=== PATIENT | male | born 1965 | race Caucasian/White ===

== ENCOUNTER 2016-09-09 17:24 | Inpatient (IN) | payer MEDICARE ==
[~2016-09-09] VITALS: Ht 172.7 cm; Wt 89.2 kg
[2016-09-09 17:30] VITALS: BP_SYST 1; PULSE 128; RESP 24; O2SAT 96
--- NOTE | 2016-09-09 17:47 | ED.REPORT ---
HPI-Dyspnea / Wheezing Date of Service September 09, 2016 ED Provider: Fernando Lorenz MD Patient is a 50 year old male with a history of Alpha 1 Antitrypsin deficiency disease who presents to the ED due to shortness of breath onset a week ago. Associated symptoms include a productive cough with green sputum, headache, nausea, sore throat and rhinorrhea. He denies fever or vomiting. Patient is currently on 8 liters of oxygen at home and uses a Nebulizer. He was hospitalized a month ago for pneumonia and finished a course of antibiotics after being discharged. Patient states that his symptoms feel similar to when he had pneumonia. The patient reports that he is here from [place] for an evaluation for a lung transplant. Nursing Notes Stated Complaint: PROBLEMS BREATHING, DIZZINESS Chief Complaint: Respiratory Distress Nursing Notes Reviewed: Yes Allergies: Coded Allergies: No Known Allergies (Unverified , 09/09/16) Scheduled Albuterol Neb Soln (Albuterol Neb Soln) 2.5 Mg/3 Ml Vial.neb 2.5 MG INHALATION Q4H Khqlu-8-Gnykvrswcz Inhibitor (Prolastin C) 1,000 Mg/20 Ml Vial 5,500 MG IV WEEKLY TAKES ON THURSDAYS, PT CAN BRING IN. 60 MG/KG Fluticasone/Vilanterol (Breo Ellipta 100-25 Mcg INH) 1 Each Aer.pow.ba 1 EACH IH DAILY Methadone (Methadone) 10 Mg/1 Ml Oral.conc 10 MG PO DAILY Prednisone (PredniSONE) 20 Mg Tablet 20 MG PO QAM Tiotropium [place] (Spiriva) 18 Mcg Cap.w.dev 18 MCG IH QAM Scheduled PRN Albuterol HFA (Proair HFA) 8.5 Gm Hfa.aer.ad 2 PUFFS INHALATION Q4H PRN PRN For Shortness of Breath Albuterol Neb Soln (Albuterol Neb Soln) 2.5 Mg/3 Ml Vial.neb 2.5 MG INHALATION Q2H PRN PRN For Shortness of Breath Alprazolam (Xanax) 1 Mg Tablet 1 MG PO TID PRN PRN For Anxiety Sumatriptan (Imitrex) 25 Mg Tablet 50 MG PO Q2H PRN PRN MIGRAINE TAKE 2 TABLETS AT ONSET OF MIGRAINE, MAY REPEAT IN 2 HRS IF NEEDED General Time Seen by MD: 17:46 Chief Complaint Shortness of breath Hx Obtained From: Patient Arrived By: Walk-in Sudden in Onset?: No Onset Occurred: 1 week ago Symptom Duration: Since onset Associated with: Reports: Cough, Nausea, Sore throat, Denies: Fever, Vomiting Recent Healthcare: Recent doctor visit, Recent hospitalization Similar Sx Previous: Yes Past Medical History Past Medical History Alpha 1 Antitrypsen deficiency disease Smoking History Unknown if Ever Smoker Social History Other Social History: Good social support, From out of town Ambulatory Status Independent Review of Systems Constitutional: Denies: Fever Ears / Nose / Throat: Reports: Sore throat Respiratory: Reports: Prod cough, green, Shortness of breath Allergy / Immune: Reports: Rhinorrhea Complete sys rev & neg: except as marked. GI: Reports: Nausea, Denies: Vomiting Neurologic: Reports: Headache Physical Exam Initial Vital Signs Vital Signs (First) Date Time Temp Pulse Resp B/P Pulse Ox O2 Delivery O2 Flow Rate FiO2 09/09/16 17:30 37.0 128 24 1/ 96 09/09/16 18:14 OxyMask 8 Initial VS: Reviewed General/Constitutional: Awake, Alert Distress / Hydration: Positive: Distress mild Neck: Atraumatic, Full range of motion RESPIRATORY: poor air movement Cardiovascular: Heart sounds NL, No murmurs Heart Rate / Rhythm: Positive: Tachycardia Skin: Atraumatic, Color NL, No rash, Warm, Dry Neurologic: Oriented X3, Speech NL, No motor deficits, No sensory deficits Head / Eyes: Atraumatic, Normocephalic, PERRL, EOMI Psychiatric: Affect NL, Mood NL Interpretation & Diagnostics Lab Results Interpretation Result Diagram: 09/09/16180909/09/16 181 Test 09/09/16 18:10 White Blood Count 9.4th/mm3 (3.8-10.1) Red Blood Count 5.33mil/mm3 (4.40-5.80) Hemoglobin 15.5g/dL (13.8-17.2) Hematocrit 46.1% (41.0-50.0) Mean Corpuscular Volume 86.5fL (81-100) Mean Corpuscular Hemoglobin 29.1pg (27.0-35.0) Mean Corpuscular Hemoglobin Concent 33.6% (32.0-37.0) Red Cell Distribution Width 13.4% (12.3-15.4) Platelet Count 292bil/L (150-400) Neutrophils (%) (Auto) 70.9% (40-74) Lymphocytes (%) (Auto) 12.0% (14-46) Monocytes (%) (Auto) 9.7% (4-12) Eosinophils (%) (Auto) 6.5% (0-5) Basophils (%) (Auto) 0.3% (0-3) Prothrombin Time 10.1sec (8.1-12.5) Prothromb Time International Ratio 0.95ratio D-Dimer < 0.50mg/L FEU (<0.50) Sodium Level 143mEq/L (134-144) Potassium Level 4.6mEq/L (3.5-5.2) Chloride Level 101mEq/L (97-108) Carbon Dioxide Level 25mmol/L (18-29) Blood Urea Nitrogen 18mg/dL (6-24) Creatinine 0.65mg/dL (0.76-1.27) Estimat Glomerular Filtration Rate 139mL/min (>59) Glucose Level 92mg/dL (60-99) Lactic Acid Level 1.3mmol/L (0.4-2.0) Calcium Level 9.6mg/dL (8.5-10.1) Total Bilirubin 0.6mg/dL (0.0-1.2) Aspartate Amino Transf (AST/SGOT) 35U/L (0-50) Alanine Aminotransferase (ALT/SGPT) 52U/L (0-44) Alkaline Phosphatase 57U/L (25-150) Troponin T < 0.010ug/L (0.0-0.011) Pro-B-Type Natriuretic Peptide 21.64pg/mL (0-121) Total Protein 7.7g/dL (6.4-8.4) Albumin 4.3g/dL (3.4-5.0) ECG Interpretation ECG Interpretation: sinus tachycardia, rate [address] changes Interpreted by: ED physician X-Ray Chest Interpretation Chest Xray Interpretation: IMPRESSION: No acute cardiopulmonary disease. Dictated by: Genesis Norwood M.D. on 09/09/2016 at 18:36 Approved by: Genesis Norwood M.D. on 09/09/2016 at 18:37 View: Portable, 1 view Interpretation / Wet Read by: Interpret - Radiologist Re-Eval/Medical Decision Med Decision/Clinical Course 50-year-old male history of alpha-1 antitrypsin deficiency, COPD awaiting lung transplant presenting after moving from [place] one week ago with worsening shortness of breath. He is on 8 L oxygen at home. He reports cough productive of green sputum. On arrival with moderate respiratory distress which improved with DuoNeb and steroids. He is requiring 8 L. Chest x-ray no pneumonia. D-dimer is negative. Patient does not feel comfortable going home. He will be admitted for COPD exacerbation. Given steroids and azithromycin. Source of Hx: Old records Re-Evaluation/Progress : Time of Eval: 20:02 Patient Status: Condition improved Re-Evaluation/Progress Note: Discussed results and plan for admit. The patient understands and agrees to the plan for admit. All questions were addressed. Consultation : Referral / Consult Name: Stephanie Timmons DO Consulted With: Hospitalist Call Returned at: 21:43 Assistant Pressman: Agrees with eval, Agrees with plan, Accepts admit Counseled Regarding: Diagnosis, Lab results, Need for admission Discharge & Departure Impression: Primary Impression: COPD exacerbation Disposition: ADMITTED TO HOSPITAL Discharge Condition All VS Reviewed: Yes Condition: Stable Scribe Attestation Portions of this note were transcribed by Ashly Boston. I, Dr. Bonny Larkin personally performed the history, physical exam and medical decision-making; I reviewed and confirmed the accuracy of the information in the transcribed note. Signed by: Kai Bean, 09/09/16 and 2142 Fernando Lorenz MD September 09, 2016 17:47 Sho Boston September 09, 2016 18:00
[2016-09-09] MEDS ORDERED: Albuterol-Ipratropium 3 mL Inhalation Solution NEB ONE (18:05)
[2016-09-09] MEDS ORDERED: MethylprednisoLONE Sodium Succinate 62.5 mg/mL 2 mL Inj IVPUSH ONE (18:05)
[2016-09-09] MEDS ORDERED: PRE20 PO (18:07)
[2016-09-09] MEDS ORDERED: METH10OR11 PO (18:07)
[2016-09-09] MEDS ORDERED: IMI25 PO (18:07)
[2016-09-09] MEDS ORDERED: TIOT18CA3 IH (18:07)
[2016-09-09] MEDS ORDERED: ALPR1TAB2 PO (18:07)
[2016-09-09] MEDS ORDERED: [UNRECOGNIZED DRUG - CODE] IV (18:07)
[2016-09-09] MEDS ORDERED: ALBU2.5V4 INHALATION ×2 (18:07→22:54)
[2016-09-09] MEDS ORDERED: FLUT1AER IH (18:08)
[2016-09-09 18:14] VITALS: PULSE 120; RESP 20; O2SAT 96
[2016-09-09 18:26] LABS: BASOPHILS % (AUTO) 0.3 % (0-3); EOSINOPHILS % (AUTO) 6.5 % (0-5); MONOCYTES % (AUTO) 9.7 % (4-12); Mean Corpuscular Hemoglobin 29.1 pg (27.0-35.0); Mean Corpuscular Volume 86.5 fL (81-100); NEUTROPHILS % (AUTO) 70.9 % (40-74); Platelet Count 292 bil/L (150-400)
--- NOTE | 2016-09-09 18:38 | DRSVH ---
PROCEDURE: X-RAY CHEST ONE VIEW, PORTABLE ([id number]) INDICATIONS: 50 year-old man with alpha-1antitrypsin deficiency presents with dyspnea. TECHNIQUE: One view of the chest was acquired. COMPARISON: None. FINDINGS: Surgical changes and devices: None. Lungs and pleura: No pleural effusions or pneumothorax. Lungs are clear. Lucencies in upper lungs compatible with emphysema. Mediastinum: Mediastinal contours appear normal. Heart size is normal. Bones and chest wall: No suspicious bony lesions. Overlying soft tissues appear unremarkable. IMPRESSION: No acute cardiopulmonary disease. Dictated by: Genesis Norwood M.D. on 09/09/2016 at 18:36 Approved by: Genesis Norwood M.D. on 09/09/2016 at 18:37
[2016-09-09 18:42] LABS: D-Dimer < 0.50 mg/L FEU (<0.50); INR 0.95 ratio
[2016-09-09 18:56] LABS: TROPONIN T < 0.010 ug/L (0.0-0.011)
[2016-09-09] MEDS ORDERED: Ondansetron 2 mg/mL 2 mL Inj ONE (19:35)
[2016-09-09 20:40] VITALS: BP 143/69; PULSE 112; RESP 23; O2SAT 97
[2016-09-09] MEDS ORDERED: oxyCODONE-Acetamin 10-325 mg Tablet PO ONE (20:40)
[2016-09-09 20:51] VITALS: PULSE 112; RESP 19; O2SAT 97
[2016-09-09] MEDS ORDERED: Alum-Mag Hydrox-Simeth 30 mL Suspension PO PRN (21:45)
[2016-09-09] MEDS ORDERED: Polyethylene Glycol (PEG) 17 Gm Powder PO PRN (21:45)
[2016-09-09 22:34] VITALS: BP 115/70; PULSE 106; RESP 24; O2SAT 95
[2016-09-09] MEDS ORDERED: ALBU8.5H2 INHALATION (22:54)
[2016-09-09 23:31] VITALS: BP 140/101; PULSE 103; RESP 22; O2SAT 96
[2016-09-10] VITALS (14 sets, daily range): BP systolic 115–128; BP diastolic 72–93; PULSE 73–112; RESP 16–24; O2SAT 93–99
[2016-09-10] MEDS ORDERED: Piperacillin-Tazo 3.375 Gm Inj 3.375 GM in Dextrose 5% Minibag Plus 50 ML IV SCH (00:30)
[2016-09-10] MEDS ORDERED: MethylprednisoLONE Sodium Succinate 62.5 mg/mL 2 mL Inj IVPUSH SCH (00:30)
[2016-09-10] MEDS: Albuterol-Ipratropium 3 mL Inhalation Solution NEB SCH ×6 (00:30→21:17)
--- NOTE | 2016-09-10 00:55 | PCM.HPMED ---
Subjective Date of Service September 10, 2016 Primary Provider: Admitting Physician: Stephanie Timmons DO Primary Care Physician: Payam Attending Physician: Stephanie Timmons DO Admit Status: From the Emergency Department Chief Complaint: SOB and Headache History of Present Illness: Khurram Hewitt is a 50 year old man with a PMH of alpha 1 antitrypsin deficiency resulting in end stage COPD who presents with a 1 week history of worsening SOB beyond his baseline and associated headache. Mr. Hweitt traveled up from [place] 1 week ago in the hopes of coordinating a lung transplant through . He states that he was in the process of being worked up for a transplant at the [facility], but they deemed that his post operative support network was insufficient to proceed with the operation; thus his father drove him up here with the idea that he could provide that level of care and could carry out the procedure. He is still in the process of coordinating the paperwork necessary to be seen by their transplant team, he states that he needs to become established with a ticket dispenser changer in [facility] and has attempted to schedule an appointment with Dr. Luna but was told that he would have to wait until March at the earliest to be seen in her office, he is concerned that he will decompensate in that interim and either pass away or no longer be a candidate for transplantation. In regards to his current illness he states that he has not yet returned to his admittedly poor baseline since making the trip from [place], he further states that his chronic migraines have become worse since arrival and are only minimally responsive to his usual Sumatriptan therapy. He had thought that the [place] living [place] 6500 [place] to much closer to sea level here would greatly improve his symptoms but as of yet that has not proven to be the case. He further complains of "lung pain" in his right lung when he attempts to take deep breaths which has been ongoing for years but has acutely worsened since arrival. He denies chest pain, abdominal pain, changes in bowel or bladder habits, nausea, vomiting, fevers or chills. The patient receives weekly infusions of Alpha-1 protease inhibitor which was scheduled to be administered today but he was not able to do so. In the Ed the patient underwent CXR which was unremarkable, laboratory evaluation including D-Dimer which was only remarkable for very minor increase in ALT at 52. Review of Systems: Comprehensive ROS negative except as outlined above in the HPI Allergies Coded Allergies: No Known Allergies (Unverified , 09/09/16) Home Medications Scheduled Albuterol Neb Soln (Albuterol Neb Soln) 2.5 Mg/3 Ml Vial.neb 2.5 MG INHALATION Q4H Vhxmk-3-Ssybdglkce Inhibitor (Prolastin C) 1,000 Mg/20 Ml Vial 5,500 MG IV WEEKLY TAKES ON THURSDAYS, PT CAN BRING IN. 60 MG/KG Fluticasone/Vilanterol (Breo Ellipta 100-25 Mcg INH) 1 Each Aer.pow.ba 1 EACH IH DAILY Methadone (Methadone) 10 Mg/1 Ml Oral.conc 10 MG PO DAILY Prednisone (PredniSONE) 20 Mg Tablet 20 MG PO QAM Tiotropium [place] (Spiriva) 18 Mcg Cap.w.dev 18 MCG IH QAM Scheduled PRN Albuterol HFA (Proair HFA) 8.5 Gm Hfa.aer.ad 2 PUFFS INHALATION Q4H PRN PRN For Shortness of Breath Albuterol Neb Soln (Albuterol Neb Soln) 2.5 Mg/3 Ml Vial.neb 2.5 MG INHALATION Q2H PRN PRN For Shortness of Breath Alprazolam (Xanax) 1 Mg Tablet 1 MG PO TID PRN PRN For Anxiety Sumatriptan (Imitrex) 25 Mg Tablet 50 MG PO Q2H PRN PRN MIGRAINE TAKE 2 TABLETS AT ONSET OF MIGRAINE, MAY REPEAT IN 2 HRS IF NEEDED PMH Alpha 1 Antitrypsen deficiency disease End Stage COPD Migraine Chronic Pain Surgical History None Family History Patient unaware of any relevant family history Social History Hx Alcohol Use: Yes Hx Substance Use: No Hx Tobacco Use: No Smoking Status: Never Smoker Living Arrangement: with Family Exam Vital Signs Vital Sign - Last Date Time Temp Pulse Resp B/P Pulse Ox O2 Delivery O2 Flow Rate FiO2 09/10/16 00:31 92 20 126/93 95 Venturi Mask 8 09/09/16 17:30 37.0 Exam Gen: A/O x3 pleasant cooperative gentleman in mild acute distress secondary to SOB Neck: Supple, non tender, no JVD, Full ROM HEENT: PERRL, EOMI, mucous membranes moist, no scleral icterus, no conjunctival pallor CV: RRR, no murmurs rubs or gallops Pulm: Diffuse expiratory wheezing, poor air movement with pursed lips breathing , no tripoding, no rales or rhonchi GI: soft, non tender, no organomegaly : no schroeder in place Extr: No cyanosis clubbing or edema MSK: no erythema or edema of joints, full ROM Neuro: CN 2-12 grossly intact, no focal neurologic deficit Lymphatic: no cervical or supraclavicular lymphadenopathy on exam Psych: Pleasant and appropriate mood and affect with some underlying anxiety Lab and Diagnostics Labs Item Value Date Time Red Blood Count 5.33 mil/mm3 09/09/161809 Neutrophils (%) (Auto) 70.9 % 09/09/161809 Lymphocytes (%) (Auto) 12.0 % L 09/09/161809 Monocytes (%) (Auto) 9.7 % 09/09/161809 Eosinophils (%) (Auto) 6.5 % H 09/09/161809 Basophils (%) (Auto) 0.3 % 09/09/161809 Estimat Glomerular Filtration Rate 139 mL/min 09/09/161809 Lactic Acid Level 1.3 mmol/L 09/09/16 1810 Calcium Level 9.6 mg/dL 09/09/160 Total Bilirubin 0.6 mg/dL 09/09/161809 Aspartate Amino Transf (AST/SGOT) 35 U/L 09/09/16 1810 Alanine Aminotransferase (ALT/SGPT) 52 U/L H 09/09/16 181 Alkaline Phosphatase 57 U/L 09/09/160 Troponin T < 0.010 ug/L 09/09/161809 Pro-B-Type Natriuretic Peptide 21.64 pg/mL 09/09/161809 Total Protein 7.7 g/dL 09/09/16 1810 Albumin 4.3 g/dL 09/09/161809 Prothrombin Time 10.1 sec 09/09/16 181 Prothromb Time International Ratio 0.95 ratio 09/09/16 181 D-Dimer < 0.50 mg/L FEU 09/09/161809 Result Diagram: 09/09/16 18109/09/161809 Microbiology Blood culture pending Legionella and S.pneumo urine antigen pending Respiratory PCR pending X-Rays, CTs and MRIs X-RAY CHEST ONE VIEW, PORTABLE IMPRESSION: No acute cardiopulmonary disease. Dictated by: Genesis Norwood M.D. on 09/09/2016 at 18:36 Approved by: Genesis Norwood M.D. on 09/09/2016 at 18:37 . Assessment & Plan Khurram Hewitt is a 50 year old gentleman with a past medical history of Alpha 1 antitrypsin deficiency resulting in end stage COPD without reported liver involvement presenting with a 1 week history of worsening SOB [place] through . 1. Acute hypoxemic hypercapnic respiratory failure, POA, acute on chronic. Active -Secondary to Alpha 1 anti-trypsin induced end stage COPD -DuoNeb q4 Scheduled -Solu-Medrol 125 mg IV Q8 -Supplemental O2 for O2 sat >88 -Broad spectrum prophylactic Abx given severity of underlying condition -Vanco, Zosyn, Levaquin -Procalcitonin pending -Tele monitoring -Pulmonology consult tomorrow AM to coordinate care and perhaps expedite establishing care with local Hand Alterations Seamstress 2. COPD exacerbation, POA, acute on chronic. Active -Respiratory medication as above -prophylactic Abx as above -Supplemental O2 as above -Pulmonology consult as above 3. Alpha 1 anti-trypsin deficiency, POA, chronic. Active -Patient receives weekly infusion of Alpha 1 protease inhibitor which was scheduled to be delivered today -Will administer tomorrow AM -Consider transfer to [facility] tomorrow AM for coordination of care and beginning pre- operative process for possible transplant -Per [facility] patient needs to establish care with both a Hand Alterations Seamstress and a Primary care doctor prior to transplant -Patient was given information to establish care at the residency clinic -Patient has attempted to establish care with Dr. Luna, but is concerned that the wait to be seen is too long given the severity of his condition 4. Migraine, POA, acute on chronic. Active -Continue home Sumatriptan 50mg PO Q2 PRN -Control triggers such as bright light, poor sleep, loud noise when possible 5. Chronic Pain, POA, acute on chronic. Active -Continue home Methadone 10 mg PO daily Code Status: FULL CODE Disposition: Inpatient, anticipated length of stay >2 midnights due to severity of condition and complexity of treatment plan Pain Evaluation: Adequate Pain Control GI Prophylaxis: H2 rojelio VTE Prophylaxis: Sub-Q Heparin (Unfractionated) VTE Mechanical Devices: Intermittant Pneumatic CD Resuscitation Status: CPR: Attempt Resuscitation Attending Statement The patient was seen and examined together with house staff on 09/09/2016 and I agree with the history, exam and plan as outlined in the note above. copies to: Tara Luna MD, David E DO September 10, 2016 00:55 Stephanie Timmons DO September 10, 2016 05:41
[2016-09-10] MEDS ORDERED: levoFLOXacin Inj 750 MG in IV Premix 1 EACH IV SCH ×2 (01:06→06:00)
--- NOTE | 2016-09-10 01:22 | ABG ---
DateTimeAnalyzed 01:18:00 -_ pH ____7.376 - 7.350 7.450 pCO2 ___50.7__ -mmHg 35.0 45.0 pO2 128 -mmHg 69.0 116 HCO3- ___29.0__ -mmol/L 22.0 26.0 ABE ____3.2__ -mmol/L -2.0 2.0 tHb ___14.7__ -g/dL O2Hb ___97.0__ -% COHb ____0.7__ -% MetHb ____1.0__ -% sO2 ___98.7__ -% 25.0 FIO2 ___60.0__ -% Drawn By AF - Date/Time Notified____ 01:21:00 -_ Notified By AF - Notified Whom ___Dr. Coelho - B 754 -mmHg tO2 ___20.2__ -Vol% Wilfredo test _Positive -
[2016-09-10] MEDS ORDERED: Vancomycin Inj 1,500 MG in 0.9% Sodium Chloride 500 ML IV ONE (01:45)
[2016-09-10] MEDS: Heparin 5,000 Unit/mL Inj SUBQ SCH ×3 (02:15→16:30)
--- NOTE | 2016-09-10 02:57 | PCM.CONPHA ---
Subjective Date of Service: September 10, 2016 SOB and Headache Reason for Pharmacy Consult: Vancomycin Dosing Objective Vital Signs Date Time Temp Pulse Resp B/P Pulse Ox O2 Delivery O2 Flow Rate FiO2 09/10/16 00:56 36.6 90 22 116/79 94 OxyMask 8.00 09/10/16 00:31 92 20 126/93 95 Venturi Mask 8 09/09/16 23:31 103 22 140/101 96 Venturi Mask 8 09/09/16 22:34 106 24 115/70 95 Venturi Mask 8 09/09/16 20:51 112 19 97 OxyMask 7 09/09/16 20:40 112 23 143/69 97 Venturi Mask 8 09/09/16 18:14 120 20 96 OxyMask 8 09/09/16 17:30 37.0 128 24 1/ 96 Weight (Kilograms): 89.200 Height (Feet): 5 Height (Inches): 8.00 Test 09/09/16 18:10 09/09/16 18:52 White Blood Count 9.4th/mm3 (3.8-10.1) Red Blood Count 5.33mil/mm3 (4.40-5.80) Hemoglobin 15.5g/dL (13.8-17.2) Hematocrit 46.1% (41.0-50.0) Mean Corpuscular Volume 86.5fL (81-100) Mean Corpuscular Hemoglobin 29.1pg (27.0-35.0) Mean Corpuscular Hemoglobin Concent 33.6% (32.0-37.0) Red Cell Distribution Width 13.4% (12.3-15.4) Platelet Count 292bil/L (150-400) Neutrophils (%) (Auto) 70.9% (40-74) Lymphocytes (%) (Auto) 12.0% (14-46) Monocytes (%) (Auto) 9.7% (4-12) Eosinophils (%) (Auto) 6.5% (0-5) Basophils (%) (Auto) 0.3% (0-3) Prothrombin Time 10.1sec (8.1-12.5) Prothromb Time International Ratio 0.95ratio D-Dimer < 0.50mg/L FEU (<0.50) Sodium Level 143mEq/L (134-144) Potassium Level 4.6mEq/L (3.5-5.2) Chloride Level 101mEq/L (97-108) Carbon Dioxide Level 25mmol/L (18-29) Blood Urea Nitrogen 18mg/dL (6-24) Creatinine 0.65mg/dL (0.76-1.27) Estimat Glomerular Filtration Rate 139mL/min (>59) Glucose Level 92mg/dL (60-99) Lactic Acid Level 1.3mmol/L (0.4-2.0) Calcium Level 9.6mg/dL (8.5-10.1) Total Bilirubin 0.6mg/dL (0.0-1.2) Aspartate Amino Transf (AST/SGOT) 35U/L (0-50) Alanine Aminotransferase (ALT/SGPT) 52U/L (0-44) Alkaline Phosphatase 57U/L (25-150) Troponin T < 0.010ug/L (0.0-0.011) Pro-B-Type Natriuretic Peptide 21.64pg/mL (0-121) Total Protein 7.7g/dL (6.4-8.4) Albumin 4.3g/dL (3.4-5.0) Procalcitonin 0.04ng/mL (0.00-0.08) Assessment/Plan Assessment/Plan Vancomycin dosing per pharmacy Indication: respiratory failure in a lung transplant candidate Trough goal: 15-20 Pertinent info: - Receiving broad spectrum antibiotics due to high risk patient. - WBC 9.4 - SCr: 0.65 - Procalcitonin is neg. - Patient receiving loading dose of vancomycin 1500 mg one time at 0214. Maintenance dose: vancomycin 1250 mg Q8H to start at 0900. Trough has been scheduled prior to the 4th dose at 09/10 @0030. Pharmacy to continue to monitor and dose vancomycin. Thank you, Adriana Garcia Pharmacist Adriana Garcia September 10, 2016 02:57
[2016-09-10] MEDS ORDERED: HYDROmorphone 1 mg/mL Inj IVPUSH ONE (03:45)
[2016-09-10 06:05] LABS: BASOPHILS % (AUTO) 0.1 % (0-3); EOSINOPHILS % (AUTO) 0 % (0-5); MONOCYTES % (AUTO) 0.6 % (4-12); Mean Corpuscular Hemoglobin 29.1 pg (27.0-35.0); Mean Corpuscular Volume 86.5 fL (81-100); NEUTROPHILS % (AUTO) 94.8 % (40-74); Platelet Count 314 bil/L (150-400)
--- NOTE | 2016-09-10 06:07 | NUR ---
Admit pt arrived to floor around 0050, A&O but very SOB, reports severe LESTER at 7/10, Imitrex given but LESTER worsened to 10/10. MD called and order for IV Benadryl and IV Dilaudid obtained and given. LESTER improved significantly. Med rec done from pt recall.
[2016-09-10 06:24] LABS: Magnesium 2.1 mg/dL (1.6-2.6); Phosphorus 2.9 mg/dL (2.5-4.9)
[2016-09-10 08:26] LABS: APPEARANCE,URINE CLEAR (CLEAR,HAZY); COLOR,URINE YELLOW (YELLOW); OCCULT BLOOD,URINE NEGATIVE (NEGATIVE); UROBILINOGEN,URINE NORMAL (NORMAL)
[2016-09-10] MEDS ORDERED: FLUTICASONE IH SCH (08:30)
[2016-09-10] MEDS ORDERED: PROLASTIN C IV SCH (08:30)
[2016-09-10] MEDS ORDERED: Vancomycin Dose per Pharmacist XX SCH (08:30)
[2016-09-10] MEDS ORDERED: VILANTEROL IH SCH (08:30)
[2016-09-10] MEDS ORDERED: Vancomycin Inj 1,250 MG in 0.9% Sodium Chloride 250 ML IV SCH (09:00)
[2016-09-10] MEDS: Methadone 10 mg/mL Oral Concentrate PO SCH (09:14)
[2016-09-10] MEDS: Fluticasone-Salmererol 250-50 Inhaler INHALATION SCH ×2 (09:18→20:55)
--- NOTE | 2016-09-10 10:24 | NUR ---
Social Work: Screening Data: Pt is a 50 y/o male admitted for COPD exacerbation. Pt's PCP is not listed. Pt discussed in rounds. states pulmonology is following, possible need for lung transplant. INSTRUCTIONAL DEVELOPER will continue to follow for possible d/c needs. Assessment: Pt who is independent at baseline. Plan: Pulmonology is following, possible need for lung transplant. INSTRUCTIONAL DEVELOPER will continue to follow for possible d/c needs. CARRIE Jones
[2016-09-10] MEDS: predniSONE 20 mg Tablet PO SCH (11:31)
[2016-09-10] MEDS: Butalbital-Acet-Caffeine Tablet PO PRN ×2 (11:33→20:56)
[2016-09-10] MEDS: guaiFENesin 600 mg ER12 Tablet PO SCH ×2 (13:23→20:56)
--- NOTE | 2016-09-10 16:50 | NUR ---
spiritual care: pt request lengthy conversational visit. pt shared detailed account of his diagnosis, disease process and more recently journey to [place] hopefully for lung transplant. pt draws hope/strength from variety of sources: sense of purposefulness, devotion to 15 yr old dtr, sense of being nurtured through this process. pt welcomed spiritual care; s.c. to follow.
--- NOTE | 2016-09-10 18:04 | NUR ---
OXYGEN Attempted to wean oxygen need for patient. Patient instructed by respiratory therapy on over-oxygenation per ABG results. Pt very anxious throughout shift. Was able to wean to 4L humidified O2 via NC, then pt independantly turned level up to nearly 9L when staff was not in the room. Reinforced deep breathing in through nose out through mouth, O2 titrated back down to 6L, pt tolerating well. Instructed pt to not adjust O2 himself, needs to call staff to assist him. Bed down, call light within reach. Will continue to monitor.
--- NOTE | 2016-09-10 18:45 | NUR ---
oxygenation Attempted to titrate O2 needs down. decreased from 4L oxymask to 2L patient maintained Spo2 of 93-96% for almost 2 hours and then began to desat into the mid 80s moved O2 back to 4L and pt saturated at 93-95% Addendum: 09/10/16 at 1931 by BARBARA VU RN RT educated pt on the risks of over oxygenation.
--- NOTE | 2016-09-10 19:30 | PCM.PNMED ---
Subjective Date of Service September 10, 2016 Subjective Patient was seen and examined at bedside today. Patient denies any chest pain, nausea, vomiting, diarrhea. Patient complains of headache and shortness of breath Overnight events: None Exam Vital Signs Vital Sign - Last Date Time Temp Pulse Resp B/P Pulse Ox O2 Delivery O2 Flow Rate FiO2 09/10/16 16:10 Supplement Oxygen 09/10/16 16:08 112 24 98 7.00 09/10/16 14:21 36.3 122/84 Intake and Output 09/09/16 09/09/16 09/10/16 Cumulative From/Thru 15:00 23:00 07:00 09/09/16 17:30 - 09/10/16 06:45 Intake Total 776 ml 776 ml Output Total 425 ml 425 ml Balance 351 ml 351 ml Intake Oral 236 ml 236 ml IV Total 540 ml 540 ml Output Urine Total 425 ml 425 ml # Voids 0 0 Exam Physical Exam: GEN: Patient was awake, alert, responding appropriately to questions HEENT: Pupils equal round and reactive to light, extraocular eye muscles intact , Neck soft supple, trachea midline, nomocephalic/atraumatic CV: +S1/S2, regular rate and rhythm, no murmurs auscultated Respiratory: Decreased breath sounds bilaterally GI: +bowel sounds x4, soft, compressible, nontender to palpation EXT: no clubbing, cyanosis, edema Neuro: Cranial nerves II-XII grossly intact Psych: mood and affect were appropriate IVs and Medications Medications Reviewed: Medications were reviewed in detail Lab and Diagnostics Result Diagram: 09/10/16 0505 09/10/16 0505 Microbiology Blood culture pending Legionella and S.pneumo urine antigen pending Respiratory PCR pending X-Rays, CTs and MRIs X-RAY CHEST ONE VIEW, PORTABLE IMPRESSION: No acute cardiopulmonary disease. Dictated by: Genesis Norwood M.D. on 09/09/2016 at 18:36 Approved by: Genesis Norwood M.D. on 09/09/2016 at 18:37 . Assessment & Plan Khurram Hewitt is a 50 year old gentleman with a past medical history of Alpha 1 antitrypsin deficiency resulting in end stage COPD without reported liver involvement presenting with a 1 week history of worsening SOB [place] lung [place] through [facility]. Acute hypoxemic hypercapnic respiratory failure, POA, acute on chronic. Active -Secondary to Alpha 1 anti-trypsin induced end stage COPD -DuoNeb q4 Scheduled -Solu-Medrol decreased to 40 mg by mouth daily -Supplemental O2 for O2 sat >88 -Discontinue vancomycin, Zosyn, and Levaquin -Start azithromycin 500 mg by mouth daily -Procalcitonin pending -Tele monitoring -Pulmonology consult tomorrow AM to coordinate care and perhaps expedite establishing care with local It Help Desk Manager COPD exacerbation, POA, acute on chronic. Active -Respiratory medication as above -prophylactic Abx as above -Supplemental O2 as above -Pulmonology consult as above Alpha 1 anti-trypsin deficiency, POA, chronic. Active -Patient receives weekly infusion of Alpha 1 protease inhibitor which was scheduled to be delivered today -Will administer tomorrow AM -Consider transfer to [facility] tomorrow AM for coordination of care and beginning pre- operative process for possible transplant -Per [facility] patient needs to establish care with both a It Help Desk Manager and a Primary care doctor prior to transplant -Patient was given information to establish care at the residency clinic -Patient has attempted to establish care with Dr. Luna, but is concerned that the wait to be seen is too long given the severity of his condition -Consult Dr. Alcazar (pulmonology) Migraine, POA, acute on chronic. Active -Continue home Sumatriptan 50mg PO Q2 PRN -Alternate medication Fioricet and Toradol -Control triggers such as bright light, poor sleep, loud noise when possible Chronic Pain, POA, acute on chronic. Active -Continue home Methadone 10 mg PO daily Code Status: FULL CODE Disposition: Patient is currently being established with PCPs and pulmonology. The patient has been diagnosed with flu will continue to monitor. The patient has had to have a lot of education about his oxygen as he is over oxygenating himself. The patient recently moved from [place] and so his oxygen requirements will be less since he is at a lower altitude. Nursing has gone in with the patient multiple times and explained this however the patient when he realizes that his oxygen has been turned down he will then turn his oxygen backup. Education will continue to be had with the patient by both physicians and respiratory therapy. GI Prophylaxis: H2 rojelio VTE Prophylaxis: Sub-Q Heparin (Unfractionated) VTE Mechanical Devices: Intermittant Pneumatic CD Resuscitation Status: CPR: Attempt Resuscitation Jasmyne Melton DO September 10, 2016 19:30
--- NOTE | 2016-09-10 19:32 | NUR ---
pain patient c/o 8/10 headache throughout shift. Administered imitrex, fioricet, toradol at different times. Pt stated that none of the medications worked and the he wanted either morphine, Percocet, or Dilaudid. Hospital notified.
[2016-09-10] MEDS ORDERED: HYDROmorphone 0.5 mg/0.5 mL iSecure Syringe IVPUSH ONE ×2 (20:35→23:10)
[2016-09-10] MEDS: Azithromycin Inj 500 MG in Dextrose 5% w/Vial Mate 250 ML IV SCH (22:05)
[2016-09-11] VITALS (11 sets, daily range): BP systolic 120–125; BP diastolic 78–89; PULSE 88–107; RESP 18–26; O2SAT 96–99
[2016-09-11] MEDS ORDERED: Vancomycin Serum Trough XX ONE (00:30)
[2016-09-11] MEDS: Heparin 5,000 Unit/mL Inj SUBQ SCH ×3 (00:30→16:30)
[2016-09-11] MEDS: Albuterol-Ipratropium 3 mL Inhalation Solution NEB SCH ×6 (00:30→19:49)
[2016-09-11] MEDS: Butalbital-Acet-Caffeine Tablet PO PRN (02:29)
[2016-09-11] MEDS ORDERED: HYDROmorphone 0.5 mg/0.5 mL iSecure Syringe IVPUSH ONE (03:25)
--- NOTE | 2016-09-11 07:21 | NUR ---
Changing his own oxygen. At beginning of shit Pt was on 4L via NC, and has been holding a SpO2 between 98% and 100%. Pt was later assessed and found to be on 6L. Pt asked how this came to be and Pt admitted he got up and increased it him self. Pt was educated to risk of oxygen toxicity and Pt agreed let this RN turn it back down to 4L. Pt holding SpO2 at 98% on 4L.
[2016-09-11] MEDS: Fluticasone-Salmererol 250-50 Inhaler INHALATION SCH ×2 (08:25→21:40)
[2016-09-11] MEDS: predniSONE 20 mg Tablet PO SCH (08:26)
[2016-09-11] MEDS: guaiFENesin 600 mg ER12 Tablet PO SCH ×2 (08:27→21:41)
[2016-09-11] MEDS: Methadone 10 mg/mL Oral Concentrate PO SCH (08:29)
[2016-09-11] MEDS: Ondansetron 2 mg/mL 2 mL Inj IVPUSH PRN ×2 (08:44→23:37)
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
--- NOTE | 2016-09-11 16:16 | NUR ---
spiritual care: follow up visit attempt pt with staff both times i attempted follow up. left note and will follow as needed wednesday
--- NOTE | 2016-09-11 19:00 | CONS ---
[address] [address] CONSULTATION REPORT PATIENT: JUSTICE DURAN : 1965 MR#: [id number] ADMIT: 09/09/2016 JOB ID: [id number] DATE OF SERVICE: 09/11/2016 REQUESTING CLINICIAN: Teaching Service. HISTORY OF PRESENT ILLNESS: The patient is an unfortunate, 50-year-old gentleman was severely advanced COPD and homozygous alpha-1 antitrypsin deficiency with ZZ genotype, who recently relocated from [place], hoping to obtain a lung transplant evaluation through the [facility] after being declined for such through [facility]. He was 1st recognized as having severe lung disease in his mid 30s, but years later was ultimately found to be homozygous Z-allele alpha-1 antitrypsin deficiency. He was started on alpha-1 antitrypsin replacement and ultimately required initiation of home oxygen. He has been disabled now for several years and has a history of regular exacerbations of his advanced COPD which require hospitalizaiont. He sought a lung transplant evaluation through the [facility] which declined to list him through their program given his perceived lack of social support system in the area. He has been moved to [facility] by his family in hopes of having a better support system and thus being eligible for lung transplantation. He has been told by that he must establish with a local PCP and pulmonologis before beginning his pretransplant evaluation. He has no history of liver disease. He denies a history of jaundice, hepatitis, gallstones or pancreatic disease. At baseline, he is able to walk 3-4 blocks on level ground. His exacerbation frequency is approximately 4-5 episodes a year leading to hospitalization. He has used oxygen at flow rates of up to 8 L/min. while he was living at nearly 6,000 feet altitude but I reviewed new recommendations with him.He is not aware of his normal lung elder, specifically whether he has a history of recent Pseudomonas, Xanthomonas, or Burkholderia infection. He was seen in our emergency department two days ago with a 3-day history of increasing sputum production, cough, and dyspnea. He denied hemoptysis. He was also complaining of some vague right-sided chest discomfort, worse with deep breath and cough. He was admitted to [facility] and started on inhaled bronchodilator, systemic corticosteroids, and azithromycin with oseltamivir. Expectorated sputum for PCR was positive for parainfluenza virus. Bacterial cultures do not appear to have been submitted. PAST MEDICAL HISTORY: 1. Alpha-1 antitrypsin deficiency, ZZ genotype per patient. 2. Severely advanced COPD. Currently, no pulmonary function testing available for review. 3. History of migraine headaches. 4. Obstructive sleep apnea based on overnight sleep study two years ago. 5. Chronic pain. OUTPATIENT MEDICATIONS: Include: 1. Prednisone 10 mg daily. 2. Methadone 10 mg daily. 3. Spiriva 18 mcg via HandiHaler daily. 4. Prolastin infusion weekly. 5. Albuterol by MDI and nebulizer p.r.n. 6. Fluticasone/vilanterol metered dose inhaler one puff daily. DRUG ALLERGIES: None known. SOCIAL HISTORY: He is disabled and . He is a former smoker. 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 Was exposed to a lot of abrasive dust where he worked; the materials he handled included cast iron, stainless steel, bronze and brass. FAMILY HISTORY: His brother reportedly also is homozygous alpha-1 anti-trypsin ZZ but reportedly has normal lung function. REVIEW OF SYSTEMS: He has early a.m. headaches for the last six months that slowly subsides 1-2 hours after awakening. He has approximate 10-pound weight loss over the last six months which is voluntary in an attempt to better qualify for lung transplantation. He denies a history of kidney disease, liver disease, heart disease. REVIEW OF SYSTEMS: Ten-system review is complete and positive as noted. PHYSICAL EXAMINATION: This is a well-developed, well-nourished gentleman who appears slightly disheveled. His blood pressure is 120/78, his heart rate is 100 and regular, respirations are 20. Temperature is 36.5 and his O2 saturation at rest on 6 L by cannula is 97%. HEENT EXAM: Conjunctivae are pale, noninjected. Sclerae anicteric. Pupils equal, round, and gaze appears conjugate. Oropharynx shows dry mucosa without ulcerations or exudate. Trachea is midline. There is no mass, adenopathy, or crepitus in the neck, and the chest shows increased AP dimension and is clear to percussion with low diaphragm. On auscultation, he has very decreased breath sounds diffusely and rare scattered crackles but no wheezing is heard. Cardiac exam shows a distant regular rhythm without murmur, gallop, or rub. Extremities are free of clubbing and cyanosis. Lower extremities without edema. Abdomen is soft and nontender. There is no organomegaly. Bowel tones are present. DATABASE: Is per the electronic medical record. Chest x-ray dated September 09, 2016, showed no acute disease. Undoubtedly, there is an extensive database in [place] with imaging, pulmonary function tests, and more recent microbiologic data. These will be useful to whichever community internal corrosion specialist assumes his care and also the [facility] as they evaluate him as a candidate for lung transplantation. IMPRESSION: 1. Acute exacerbation chronic obstructive pulmonary disease. He is on azithromycin as a single agent and parainfluenza alone may explain his symptoms. However, I definitely would obtain an expectorated sputum for bacterial culture, as given the chronicity and advanced nature of his disease, he is at risk for resistant organisms including Pseudomonas, Xanthomonas, and Burkholderia. 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 I suspect that he has some diurnal hypercarbia from lack of treatment for his sleep apnea against background severe chronic obstructive pulmonary disease. An early a.m. blood gas might help to confirm this impression. In the meantime, he should be encouraged to use his CPAP as previously prescribed. His use of chronic narcotics and anxiolytics may further contribute to sleep-disordered breathing and should be stopped or at least minimized. Discontinuing these medications may increase his chance for being successfully accepted as a candidate for lung transplant as well. Unfortunately, there is an extraordinarily long wait for new patients to be accepted into the local pulmonary outpatient clinic. There are any number of other options within an hour or so drive however, including [place], and if our system is unable to accommodate him within the next month or so, he might be referred to the [facility] up in [place] as an alternative. RECOMMEND: 1. Expectorated sputum for culture. Steroids, antibiotics and inhaled bronchodilators as you are. 2. Obtain prior outpatient records from previous internal corrosion specialist, Dr. Plasencia, in [place], [place]. 3. Continue weekly Prolastin infusion. 4. Establish with local community internal corrosion specialist or refer outside community if wait for this is excessive. 5. Refer to [facility] for initial evaluation once outside records have been obtained and he is established with a community internal corrosion specialist. 6. Early AM ABG Thank you for requesting pulmonary critical care consultation. We will continue to follow with you while he remains hospitalized. ALPESH
[2016-09-11] MEDS: Azithromycin Inj 500 MG in Dextrose 5% w/Vial Mate 250 ML IV SCH (21:45)
[2016-09-12] VITALS (13 sets, daily range): BP systolic 115–138; BP diastolic 75–91; PULSE 81–114; RESP 20–24; O2SAT 95–99
[2016-09-12] MEDS: Albuterol-Ipratropium 3 mL Inhalation Solution NEB SCH ×7 (00:05→21:04)
[2016-09-12] MEDS: Heparin 5,000 Unit/mL Inj SUBQ SCH ×3 (02:07→16:00)
--- NOTE | 2016-09-12 02:12 | NUR ---
Pain / Anxiety Management / O2 Sats Toradol works for a few hours but makes him feel anxious. Taking Xanax helps with anxiety but makes him have a headache. Imitrex doesn't help with headache as its not a migraine, he remembers having migraines and this is not the same pain. Wanted Dilaudid / Morphine / Ativan, notified MD. No new orders at this time. @ around 23:00 appears to be sleeping and after vitals @01:34 went directly back to similar apparent sleeping state. O2 sats consistently near 95-96% on 4-5L NC.
[2016-09-12] MEDS: Butalbital-Acet-Caffeine Tablet PO PRN ×2 (05:51→16:03)
[2016-09-12] MEDS: guaiFENesin 600 mg ER12 Tablet PO SCH ×2 (08:30→22:06)
[2016-09-12] MEDS: Fluticasone-Salmererol 250-50 Inhaler INHALATION SCH ×2 (08:39→22:06)
[2016-09-12] MEDS: predniSONE 20 mg Tablet PO SCH (08:39)
[2016-09-12] MEDS: Methadone 10 mg/mL Oral Concentrate PO SCH (08:41)
--- NOTE | 2016-09-12 10:20 | ABG ---
DateTimeAnalyzed 10:14:00 -_ pH ____7.400 - 7.350 7.450 pCO2 ___50.7__ -mmHg 35.0 45.0 pO2 ___36.9__ -mmHg 69.0 116 HCO3- ___30.7__ -mmol/L 22.0 26.0 ABE ____5.3__ -mmol/L -2.0 2.0 tHb ___12.5__ -g/dL O2Hb ___71.3__ -% COHb ____0.8__ -% MetHb ____1.1__ -% sO2 ___72.7__ -% 25.0 FIO2 ___21.0__ -% Drawn By lw - Date/Time Notified____ 10:19:00 -_ Liter_Flow ____4.0__ -L/min Oxygen Device 1 NC - Notified By lw - Notified Whom ___dr. beltran - B 756 -mmHg tO2 ___12.5__ -Vol% Wilfredo test _Positive -
--- NOTE | 2016-09-12 10:27 | NUR ---
Social Work: Continued d/c planning Data: Pt previously was seen at a Methadone clinic in [place] and needs to get connected with a clinic in [facility]. [employer] called Submittable, no answer, voice mail states that those interested can call back during business hours. [employer] printed information for pt to contact [facility] is [place], [place] and how to get connected through them. Phone number [phone], address [address] [place] [address]. Pt will call to set up methadone with [facility] on Wednesday. No further d/c planning needs at this time. [employer] will continue to follow if needs arise. Assessment: Pt who is independent at baseline. Plan: Pt will d/c home via POV when medically stable and will call [facility] on Wednesday to be set up with methadone there. No further d/c planning needs at this time. [employer] will continue to follow if needs arise. CARRIE Jones Addendum: 09/12/16 at 1049 by ROOSEVELT POWERS SS [employer] spoke with pt when giving him the information to call clinic. Pt states that he does not want to go to a Methadone clinic and that he plans to get his Methadone through a Doctor as he did in [place]. Pt explained again that he is not taking this for CD issues, but for pain and that it works the best with his pulmonary issues. Pt accepted the information about the clinic and states that he can use it as a back up plan if needed. CARRIE Jones
--- NOTE | 2016-09-12 14:35 | PCM.PNMED ---
Subjective Date of Service September 12, 2016 Subjective Patient was seen and examined at bedside today. Patient denies any chest pain, shortness of breath, nausea, vomiting, diarrhea. Patient currently complains of a headache. Overnight events: None Exam Vital Signs Vital Sign - Last Date Time Temp Pulse Resp B/P Pulse Ox O2 Delivery O2 Flow Rate FiO2 09/12/16 13:39 37.3 87 24 134/91 98 Nasal Cannula 6.00 Intake and Output 09/11/16 09/11/16 09/12/16 Cumulative From/Thru 15:00 23:00 07:00 09/09/16 17:30 - 09/12/16 06:38 Intake Total 450 ml 637 ml 5595 ml Output Total 500 ml 500 ml 3440 ml Balance -50 ml 137 ml 2155 ml Intake Oral 450 ml 637 ml 3023 ml IV Total 1474 ml Tube Feeding 947 ml Tube Irrigant 151 ml Output Urine Total 500 ml 500 ml 3440 ml # Voids 0 # Bowel Movements 0 0 0 Exam Physical Exam: GEN: Patient was awake, alert, responding appropriately to questions HEENT: Pupils equal round and reactive to light, extraocular eye muscles intact , Neck soft supple, trachea midline, nomocephalic/atraumatic, nasal cannula in place CV: +S1/S2, regular rate and rhythm, no murmurs auscultated Respiratory: Coarse breath sounds, no wheezes rales or rhonchi GI: +bowel sounds x4, soft, compressible, nontender to palpation EXT: no clubbing, cyanosis, edema Neuro: Cranial nerves II-XII grossly intact Psych: mood and affect were appropriate IVs and Medications Medications Reviewed: Medications were reviewed in detail Lab and Diagnostics Result Diagram: 09/10/16 0505 09/10/16 0505 Microbiology Blood culture pending Legionella and S.pneumo urine antigen pending Respiratory PCR pending X-Rays, CTs and MRIs X-RAY CHEST ONE VIEW, PORTABLE IMPRESSION: No acute cardiopulmonary disease. Dictated by: Genesis Norwood M.D. on 09/09/2016 at 18:36 Approved by: Genesis Norwood M.D. on 09/09/2016 at 18:37 . 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 Acute hypoxemic hypercapnic respiratory failure, POA, acute on chronic. Active -Secondary to Alpha 1 anti-trypsin induced end stage COPD -DuoNeb q4 Scheduled -Solu-Medrol decreased to 40 mg by mouth daily -Discontinue vancomycin, Zosyn, and Levaquin -Start azithromycin 500 mg by mouth daily -Procalcitonin pending -Tele monitoring -Flu positive -Dr. Alcazar following -ABG this morning shows patient with a PO2 of 37; patient has been instructed not to adjust his oxygen at this time and that only respiratory therapy should adjust the patient's oxygen -Follow up ABG in the morning COPD exacerbation, POA, acute on chronic. Active -Respiratory medication as above -Azithromycin 500 mg by mouth daily -Supplemental O2 as above -Pulmonology following Alpha 1 anti-trypsin deficiency, POA, chronic. Active -Weekly infusion of Alpha 1 protease inhibitor given yesterday -Per [facility] patient needs to establish care with both a Clinical Dental Technician and a Primary care doctor prior to transplant -Patient has appointment with Dr. Oropeza at 4:15pm on 09/16/16 -Patient has attempted to establish care with Dr. Luna, but is concerned that the wait to be seen is too long given the severity of his condition Will try to establish an appointment at this time. -Dr. Alcazar (pulmonology) Migraine, POA, acute on chronic. Active -Continue home Sumatriptan 50mg PO Q2 PRN -Alternate medication Fioricet and Toradol -Control triggers such as bright light, poor sleep, loud noise when possible Chronic Pain, POA, acute on chronic. Active -Continue home Methadone 10 mg PO daily - Patient should be established with a methadone clinic upon discharged as he has recently moved to this area and was on methadone in [place]. The patient will be [facility] to [facility] for further services. Code Status: FULL CODE Disposition: Patient is currently being established with PCPs, methadone clinic , and pulmonology. At this time we are titrating the patient's oxygen levels. Once the patient's oxygen levels are stable he will be ready for discharge home. Extensive discussion was held with the patient and he understands the importance of allowing us to titrate his oxygen and not self titrating at this time so we can obtain a good oxygen level for him. The patient states that he understands this and will allow rest for therapy to manage his oxygen levels. GI Prophylaxis: H2 rojelio VTE Prophylaxis: Sub-Q Heparin (Unfractionated) VTE Mechanical Devices: Intermittant Pneumatic CD Resuscitation Status: CPR: Attempt Resuscitation Time spent 40 minutes Jasmyne Melton DO September 12, 2016 14:35
--- NOTE | 2016-09-12 16:06 | NUR ---
pain/resp/activity pt reports continued headaches and back pain. prn Tordal and fiorecet given per md order with effective results. pt oxygen at 4-6L nc or oxymask sating well. pursed lip breathing at times. Pt sba to brp with 6L nc, tolerated well. will continue to monitor.
--- NOTE | 2016-09-12 16:26 | PCM.PNMED ---
Subjective Date of Service September 12, 2016 Subjective Parents visiting Patient has many questions regarding transplant process and alternatives including LVRS and BLVR. Cough minimally productive No new complaints. SOB at baseline Exam Vital Signs Vital Sign - Last Date Time Temp Pulse Resp B/P Pulse Ox O2 Delivery O2 Flow Rate FiO2 09/12/16 15:49 Supplement Oxygen 09/12/16 15:11 100 20 97 6.00 09/12/16 13:39 37.3 134/91 Intake and Output 09/11/16 09/11/16 09/12/16 Cumulative From/Thru 15:00 23:00 07:00 09/09/16 17:30 - 09/12/16 06:38 Intake Total 450 ml 637 ml 5595 ml Output Total 500 ml 500 ml 3440 ml Balance -50 ml 137 ml 2155 ml Intake Oral 450 ml 637 ml 3023 ml IV Total 1474 ml Tube Feeding 947 ml Tube Irrigant 151 ml Output Urine Total 500 ml 500 ml 3440 ml # Voids 0 # Bowel Movements 0 0 0 Exam Apprehensive middle aged man speaks in short sentences. Lungs Decreased air movement, scattered crackles, NO wheezes CV RRR, distant HTs, no m/g/r Abd Soft, normal BTs, no HSM Ext Warm, no edema, cyanosis Lab and Diagnostics Result Diagram: 09/10/16 0505 09/10/16 0505 Microbiology Blood culture pending Legionella and S.pneumo urine antigen pending Respiratory PCR pending X-Rays, CTs and MRIs X-RAY CHEST ONE VIEW, PORTABLE IMPRESSION: No acute cardiopulmonary disease. Dictated by: Genesis Norwood M.D. on 09/09/2016 at 18:36 Approved by: Genesis Norwood M.D. on 09/09/2016 at 18:37 . Assessment & Plan IMP Acute exacerbation of COPD, improving, parainfluenza on PCR Severe COPD ( MARTA score 7) 2/2 AAT deficiency (zz) Chronic pain REC De escalate abx and steroids as you are Anticipate discharge in next day or 2 Outpatient referral for PCP and Pulm providers GI Prophylaxis: H2 rojelio VTE Prophylaxis: Sub-Q Heparin (Unfractionated) VTE Mechanical Devices: Intermittant Pneumatic CD Resuscitation Status: CPR: Attempt Resuscitation Wolf Alcazar MD September 12, 2016 16:26
[2016-09-12] MEDS: Azithromycin Inj 500 MG in Dextrose 5% w/Vial Mate 250 ML IV SCH (22:04)
[2016-09-13] VITALS (8 sets, daily range): BP systolic 121–128; BP diastolic 83–85; PULSE 81–94; RESP 18–28; O2SAT 97–99
[2016-09-13] MEDS: Heparin 5,000 Unit/mL Inj SUBQ SCH ×2 (00:01→08:37)
[2016-09-13] MEDS: Albuterol-Ipratropium 3 mL Inhalation Solution NEB SCH ×4 (03:06→14:50)
--- NOTE | 2016-09-13 05:24 | NUR ---
O2/Headache/anxiety SpO2 in mid 90s on 6L O2 via NC. SOB at rest, when having conversation (but able to finish sentences in one breathe), and with exertion. Pt c/o 02/09 headache, but not migraine. Requesting to have Morphine and [place]; no new orders. Pt very anxious and slightly agitated due to headache and bloating. Pt has been burping a lot. Toradol not due at that time. Maalox with simethicone given with good relief. cool wash cloth given. Pt was able to sleep for 5 hours with wash cloth over his face. Pt woke up feeling a little better; 09/09 headache. Toradol and xanax given with minimal relief.
--- NOTE | 2016-09-13 06:25 | ABG ---
DateTimeAnalyzed 06:21:00 -_ pH ____7.376 - 7.350 7.450 pCO2 ___55.9__ -mmHg 35.0 45.0 pO2 ___37.4__ -mmHg 69.0 116 HCO3- ___32.0__ -mmol/L 22.0 26.0 ABE ____5.8__ -mmol/L -2.0 2.0 tHb ___13.0__ -g/dL O2Hb ___68.4__ -% COHb ____0.7__ -% MetHb ____1.0__ -% sO2 ___69.6__ -% 25.0 FIO2 ___35.0__ -% Drawn By jh - Date/Time Notified____ 06:24:00 -_ Liter_Flow ____6.0__ -L/min Oxygen Device 1 __CANNULA - Notified By jh - Notified Whom sullenberger - B 757 -mmHg tO2 ___12.5__ -Vol% Wilfredo test _Positive -
[2016-09-13] MEDS: guaiFENesin 600 mg ER12 Tablet PO SCH (08:30)
[2016-09-13] MEDS: predniSONE 20 mg Tablet PO SCH (08:36)
[2016-09-13] MEDS: Methadone 10 mg/mL Oral Concentrate PO SCH (08:40)
[2016-09-13] MEDS: Ondansetron 2 mg/mL 2 mL Inj IVPUSH PRN (08:44)
[2016-09-13] MEDS: Fluticasone-Salmererol 250-50 Inhaler INHALATION SCH (08:59)
--- NOTE | 2016-09-13 09:00 | NUR ---
SU signed CARRIE Jones
[2016-09-13] MEDS ORDERED: OSLT75C PO (12:30)
[2016-09-13] MEDS ORDERED: ZIT250 PO (12:30)
[2016-09-13] MEDS ORDERED: PRED-508 PO (12:30)
[2016-09-13] MEDS ORDERED: BENZ100C8 PO (12:30)
[2016-09-13] MEDS ORDERED: ALBU2.5V4 INHALATION (12:30)
[2016-09-13] MEDS ORDERED: METH10OR11 PO (12:30)
[2016-09-13] MEDS ORDERED: CITA20TA PO (12:30)
--- NOTE | 2016-09-13 12:38 | PCM.DIMED ---
Discharge Instructions Date of Service September 13, 2016 Dates of Hospitalization September 09, 2016 at 23:16 Discharge Diagnosis Discharge Diagnosis Acute hypoxemic hypercapnic respiratory failure secondary to parainfluenza virus Alpha-1 antitrypsin disease End-stage COPD Migraine Chronic pain Medication Instructions You have been started on Celexa which is a new medication for your anxiety. This medication takes 2-3 weeks in order to start working. Currently you are on 20 mg after 3 weeks if you see no change in urinary anxiety please contact your clinic care physician as this medication can be increased to 40 mg daily. Diet Heart Healthy Activity No restrictions (gradually return to her normal daily activities) Call your provider Shortness of breath, Chest pain, Weakness (unilateral) Patient Instructions 1. Follow-up with Dr. Oropeza your new PCP 2. Please call the list of pulmonology offices in order to establish care with pulmonology please discuss with your PCP in order to assist with this, but you have been given a list of numbers and different pulmonology offices to call on your own. 3. Follow-up with the methadone/chronic pain clinics in order to further manage your methadone taper. This must be followed by a methadone clinic for pain management. You have been given enough methadone to last for the next 10 days in order to find a clinic to manage her methadone. Please use the resources given to you by social work. Follow-up Provider: Sammie Oropeza DO Follow-up with PCP in: 1 week (you have an appointment on September 16 at 4:30 PM for any further questions please call the office at [phone]) Follow-up in: 2 weeks (please call to schedule an appointment with a event attendant in the area. Please used a list of resources that have been treated for you as a starting point, but it is important that he continue to follow-up and try to get an appointment as soon as possible with a event attendant. He may also contact the [facility] and establish care with a event attendant there as well since you will most likely need a lung transplant finding a event attendant at the [facility] or [facility] are comparable alternatives to having a event attendant in this area.) Additional Information Please use the resources given to you in order to follow up with [facility] for further methadone management. Jasmyne Melton DO September 13, 2016 12:38
--- NOTE | 2016-09-13 12:48 | PCM.DC.MED ---
Discharge Summary Date of Service September 13, 2016 Dates of Hospitalization Date of Hospital Admission September 09, 2016 at 23:16 Date of Discharge: September 13, 2016 Providers: Admitting Physician: Stephanie Timmons DO Primary Care Physician: Payam Attending Physician: Stephanie Timmons DO Diagnosis at Time of Discharge Diagnosis at Time of Discharge Acute hypoxemic hypercapnic respiratory failure secondary to parainfluenza virus Alpha-1 antitrypsin disease End-stage COPD Migraine Chronic pain Consultations Pulmonology Dr. Alcazar Procedures XRay, CTs & MRIs X-RAY CHEST ONE VIEW, PORTABLE IMPRESSION: No acute cardiopulmonary disease. Dictated by: Genesis Norwood M.D. on 09/09/2016 at 18:36 Approved by: Genesis Norwood M.D. on 09/09/2016 at 18:37 . Brief History Khruram Hewitt is a 50 year old man with a PMH of alpha 1 antitrypsin deficiency resulting in end stage COPD who presents with a 1 week history of worsening SOB beyond his baseline and associated headache. Mr. Hewitt traveled up from [place] 1 week ago in the hopes of coordinating a lung transplant through . He states that he was in the process of being worked up for a transplant at the [facility], but they deemed that his post operative support network was insufficient to proceed with the operation; thus his father drove him up here with the idea that he could provide that level of care and could carry out the procedure. He is still in the process of coordinating the paperwork necessary to be seen by their transplant team, he states that he needs to become established with a offset pressman in [facility] and has attempted to schedule an appointment with Dr. Luna but was told that he would have to wait until March at the earliest to be seen in her office, he is concerned that he will decompensate in that interim and either pass away or no longer be a candidate for transplantation. In regards to his current illness he states that he has not yet returned to his admittedly poor baseline since making the trip from [place], he further states that his chronic migraines have become worse since arrival and are only minimally responsive to his usual Sumatriptan therapy. He had thought that the change [place] living [place] 6500 [place] elevation to much closer to sea level here would greatly improve his symptoms but as of yet that has not proven to be the case. He further complains of "lung pain" in his right lung when he attempts to take deep breaths which has been ongoing for years but has acutely worsened since arrival. He denies chest pain, abdominal pain, changes in bowel or bladder habits, nausea, vomiting, fevers or chills. The patient receives weekly infusions of Alpha-1 protease inhibitor which was scheduled to be administered today but he was not able to do so. In the Ed the patient underwent CXR which was unremarkable, laboratory evaluation including D-Dimer which was only remarkable for very minor increase in ALT at 52. Hospital Course Khurram Hewitt is a 50 year old gentleman with a past medical history of Alpha 1 antitrypsin deficiency resulting in end stage COPD without reported liver involvement presenting with a 1 week history of worsening SOB since relocating to [place] from [place] in the hopes or receiving a lung transplant through . The patient recently moved here from [place] and presented with an acute exacerbation of COPD likely secondary to parainfluenza virus. The patient was started on Tamiflu and seemed to do well. The patient's oxygen levels have been labile as he recently moved from [place] and was on 8-10 L however now that he is coming down lower in elevation the patient needed some education on decreasing his oxygen levels. Upon admission the patient's PO2 on ABG was 128. The patient has since been decreased from 8-10 L to 6 L and his PO2 on ABG was 101. The patient states that he understands the need to decrease his oxygen levels as he currently does not need 8-10 L. Some of the patient's anxiety is also contributing to his "need" for higher oxygen levels. The patient states that he has been taking alprazolam when necessary however he feels that that causes respiratory depression. The patient has been started on Celexa 20 mg daily for anti-anxiety and may be increased to 40 mg daily by his PCP in the next 3-4 weeks if he is still having significant anxiety. The patient has moved here recently from [place] in hopes of a lung transplant however he needs to establish care prior to being put on the list. The patient has been established with a PCP Dr. Oropeza. And at this time the patient is in search of a offset pressman. The pulmonology clinic here currently has a six- month wait list as he was trying to get an appointment with Dr. Luna; however , the patient has been encouraged to also look for offset pressman in the area as well since this is pansensitive and he needs to have a offset pressman sooner rather than later. The patient is in the process of weaning from methadone secondary to chronic pain medication. The patient has been decreased to 10 mg daily and is currently looking for a methadone clinic. The patient has been referred to [facility] however he can also go to a chronic pain management clinic as well. The patient is being discharged home in stable condition. Please see below for full hospital course: Acute hypoxemic hypercapnic respiratory failure, POA, acute on chronic. Active -Secondary to Alpha 1 anti-trypsin induced end stage COPD -DuoNeb q4 Scheduled -Solu-Medrol decreased to 40 mg by mouth daily -Discontinue vancomycin, Zosyn, and Levaquin -Start azithromycin 500 mg by mouth daily -Procalcitonin pending -Tele monitoring -Flu positive -Dr. Alcazar following -ABG this morning shows patient with a PO2 of 37; patient has been instructed not to adjust his oxygen at this time and that only respiratory therapy should adjust the patient's oxygen -Follow up ABG in the morning COPD exacerbation, POA, acute on chronic. Active -Respiratory medication as above -Azithromycin 500 mg by mouth daily -Supplemental O2 as above -Pulmonology following Alpha 1 anti-trypsin deficiency, POA, chronic. Active -Weekly infusion of Alpha 1 protease inhibitor given yesterday -Per [facility] patient needs to establish care with both a Parts Sales Advisor and a Primary care doctor prior to transplant -Patient has appointment with Dr. Oropeza at 4:15pm on 09/16/16 -Patient has attempted to establish care with Dr. Luna, but is concerned that the wait to be seen is too long given the severity of his condition Will try to establish an appointment at this time. -Dr. Alcazar (pulmonology) Migraine, POA, acute on chronic. Active -Continue home Sumatriptan 50mg PO Q2 PRN -Alternate medication Fioricet and Toradol -Control triggers such as bright light, poor sleep, loud noise when possible Chronic Pain, POA, acute on chronic. Active -Continue home Methadone 10 mg PO daily - Patient should be established with a methadone clinic upon discharged as he has recently moved to this area and was on methadone in [place]. The patient will be referred to [facility] for further services. Code Status: FULL CODE Disposition: Patient is currently being established with PCPs, methadone clinic , and pulmonology. At this time we are titrating the patient's oxygen levels. Once the patient's oxygen levels are stable he will be ready for discharge home. Extensive discussion was held with the patient and he understands the importance of allowing us to titrate his oxygen and not self titrating at this time so we can obtain a good oxygen level for him. The patient states that he understands this and will allow rest for therapy to manage his oxygen levels. Exam Vital Signs (Last) Date Time Temp Pulse Resp B/P Pulse Ox O2 Delivery O2 Flow Rate FiO2 09/13/16 11:07 92 24 97 Nasal Cannula 6.00 09/13/16 10:41 36.7 128/85 Exam Physical Exam: GEN: Patient was awake, alert, responding appropriately to questions HEENT: Pupils equal round and reactive to light, extraocular eye muscles intact , Neck soft supple, trachea midline, nomocephalic/atraumatic, nasal cannula in place CV: +S1/S2, regular rate and rhythm, no murmurs auscultated Respiratory: Coarse breath sounds GI: +bowel sounds x4, soft, compressible, nontender to palpation EXT: no clubbing, cyanosis, edema Neuro: Cranial nerves II-XII grossly intact Psych: mood and affect were appropriate Test 09/09/16 18:10 09/09/16 18:52 09/10/16 05:05 09/10/16 08:00 Prothrombin Time 10.1sec (8.1-12.5) Prothromb Time International Ratio 0.95ratio D-Dimer < 0.50mg/L FEU (<0.50) Lactic Acid Level 1.3mmol/L (0.4-2.0) Troponin T < 0.010ug/L (0.0-0.011) Pro-B-Type Natriuretic Peptide 21.64pg/mL (0-121) Procalcitonin 0.04ng/mL (0.00-0.08) White Blood Count 6.8th/mm3 (3.8-10.1) Red Blood Count 4.95mil/mm3 (4.40-5.80) Hemoglobin 14.4g/dL (13.8-17.2) Hematocrit 42.8% (41.0-50.0) Mean Corpuscular Volume 86.5fL (81-100) Mean Corpuscular Hemoglobin 29.1pg (27.0-35.0) Mean Corpuscular Hemoglobin Concent 33.6% (32.0-37.0) Red Cell Distribution Width 13.1% (12.3-15.4) Platelet Count 314bil/L (150-400) Neutrophils (%) (Auto) 94.8% (40-74) Lymphocytes (%) (Auto) 4.4% (14-46) Monocytes (%) (Auto) 0.6% (4-12) Eosinophils (%) (Auto) 0% (0-5) Basophils (%) (Auto) 0.1% (0-3) Phosphorus Level 2.9mg/dL (2.5-4.9) Magnesium Level 2.1mg/dL (1.6-2.6) Total Bilirubin 0.7mg/dL (0.0-1.2) Aspartate Amino Transf (AST/SGOT) 26U/L (0-50) Alanine Aminotransferase (ALT/SGPT) 50U/L (0-44) Alkaline Phosphatase 59U/L (25-150) Total Protein 7.1g/dL (6.4-8.4) Albumin 4.3g/dL (3.4-5.0) Urine Color Yellow (YELLOW) Urine Appearance Clear (CLEAR,HAZY) Urine pH 6.0 (5.0-8.0) Urine Specific [place] 1.020 (1.003-1.035) Urine Protein Negativemg/dL (NEG,TRACE) Urine Glucose (UA) 500mg/dL (NEGATIVE) Urine Ketones 15mg/dL (NEGATIVE) Urine Occult Blood Negative (NEGATIVE) Urine Nitrite Negative (NEGATIVE) Urine Bilirubin Negative (NEGATIVE) Urine Urobilinogen Normalmg/dL (NORMAL) Urine Leukocyte Esterase Negative (NEGATIVE) Urine RBC 0-2/hpf (0-2) Urine WBC 0-5/hpf (0-5) Urine Epithelial Cells Occasional/hpf (NONE-MOD) Urine Crystals None seen (NONE SEEN) Urine Bacteria None/hpf (NONE-FEW) Urine Hyaline Casts None/lpf (NONE) Urine Granular Casts None seen (NONE SEEN) Urine Waxy Casts None seen (NONE SEEN) Urine Red Blood Cell Casts None seen (NONE SEEN) Urine White Blood Cell Casts None seen (NONE SEEN) Urine Mucus Present (None Seen) Urine Trichomonas None seen (NONE SEEN) Urine Yeast None (NONE SEEN) Urinalysis Comment None Urine Culture Reflexed Not indicated Urine Legionella pneumophilia Ag Negative (Negative) Test 09/11/16 07:42 09/13/16 05:36 Hemoglobin A1c 6.3% (4.8-5.6) Sodium Level 143mEq/L (134-144) Potassium Level 3.9mEq/L (3.5-5.2) Chloride Level 103mEq/L (97-108) Carbon Dioxide Level 28mmol/L (18-29) Blood Urea Nitrogen 17mg/dL (6-24) Creatinine 0.62mg/dL (0.76-1.27) Estimat Glomerular Filtration Rate 147mL/min (>59) Glucose Level 143mg/dL (60-99) Calcium Level 9.2mg/dL (8.5-10.1) Microbiology Results Blood culture pending Legionella and S.pneumo urine antigen pending Respiratory PCR pending Discharge Medications Discharge Medications Albuterol Neb Soln (Albuterol Neb Soln) 2.5 Mg/3 Ml Vial.neb 2.5 MG INHALATION Q4H Prescribed by: ZHANNA BEARDEN DO Lpkyw-0-Rdoezmnvjo Inhibitor (Prolastin C) 1,000 Mg/20 Ml Vial 5,500 MG IV WEEKLY (Reported) TAKES ON THURSDAYS, PT CAN BRING IN. 60 MG/KG Azithromycin (Zithromax) 250 Mg Tablet 500 MG PO HS Prescribed by: ZHANNA BEARDEN DO Citalopram Hydrobromide (Celexa) 20 Mg Tablet 20 MG PO DAILY Prescribed by: ZHANNA BEARDEN DO Fluticasone/Vilanterol (Breo Ellipta 100-25 Mcg INH) 1 Each Aer.pow.ba 1 EACH IH DAILY (Reported) Methadone (Methadone) 10 Mg/1 Ml Oral.conc 10 MG PO DAILY Prescribed by: ZHANNA BEARDEN DO Oseltamivir Phosphate (Tamiflu) 10 Cap/Pkg Capsule 75 MG PO BID Prescribed by: ZHANNA BEARDEN DO Prednisone (Deltasone) 20 Mg Tablet 40 MG PO DAILY Prescribed by: ZHANNA BEARDEN DO Tiotropium Royal (Spiriva) 18 Mcg Cap.w.dev 18 MCG IH QAM (Reported) As needed Albuterol HFA (Proair HFA) 8.5 Gm Hfa.aer.ad 2 PUFFS INHALATION Q4H PRN PRN For Shortness of Breath (Reported) Alprazolam (Xanax) 1 Mg Tablet 1 MG PO TID PRN PRN For Anxiety (Reported) Benzonatate (Benzonatate) 100 Mg Capsule 100 MG PO TID PRN PRN For Cough Prescribed by: ZHANNA BEARDEN DO Sumatriptan (Imitrex) 25 Mg Tablet 50 MG PO Q2H PRN PRN MIGRAINE (Reported) TAKE 2 TABLETS AT ONSET OF MIGRAINE, MAY REPEAT IN 2 HRS IF NEEDED Additional med instructions You have been started on Celexa which is a new medication for your anxiety. This medication takes 2-3 weeks in order to start working. Currently you are on 20 mg after 3 weeks if you see no change in urinary anxiety please contact your clinic care physician as this medication can be increased to 40 mg daily. Followup Plan Discharge Diet: Heart Healthy Discharge Activity: No restrictions (gradually return to her normal daily activities) Patient Instructions 1. Follow-up with Dr. Oropeza your new PCP 2. Please call the list of pulmonology offices in order to establish care with pulmonology please discuss with your PCP in order to assist with this, but you have been given a list of numbers and different pulmonology offices to call on your own. 3. Follow-up with the methadone/chronic pain clinics in order to further manage your methadone taper. This must be followed by a methadone clinic for pain management. You have been given enough methadone to last for the next 10 days in order to find a clinic to manage her methadone. Please use the resources given to you by social work. Follow-up Provider: Sammie Oropeza DO Follow-up with PCP in: 1 week (you have an appointment on September 16 at 4:30 PM for any further questions please call the office at [phone]) Follow-up in: 2 weeks (please call to schedule an appointment with a offset pressman in the area. Please used a list of resources that have been treated for you as a starting point, but it is important that he continue to follow-up and try to get an appointment as soon as possible with a offset pressman. He may also contact the [facility] and establish care with a offset pressman there as well since you will most likely need a lung transplant finding a offset pressman at the [facility] or [facility] are comparable alternatives to having a offset pressman in this area.) Time spent Greater than 35 minutes copies to: Sammie Oropeza DO; Tara Luna MD, Precious L DO September 13, 2016 12:48
--- NOTE | 2016-09-13 13:15 | NUR ---
Social Work: Discharge Data: Pt is on day 4 of hospitalization. EMR reviewed. D/C orders are in. DINNER COOK previously gave pt methadone clinic information, requested by . No d/c planning needs at this time. DINNER COOK will continue to follow if needs arise. Assessment: Pt who is independent at baseline. Plan: Pt will d/c home via POV today. No d/c planning needs at this time. DINNER COOK will continue to follow if needs arise. CARRIE Jones
--- NOTE | 2016-09-13 17:14 | NUR ---
Discharge D/C to home with Father. D/C instructions discussed and packet provided including RXs and list of local pulmonologists. Pt comfortable with plan of care. Escorted off floor via w/c with O2 in place by CRYSTALLIZER OPERATOR to private vehicle.
[2016-09-14] MEDS ORDERED: MTH10T PO (13:20)
== END 2016-09-13 17:13 | disposition home or self-care (01) | DRG 190 ==
LOC: SED 17:24 → MPC 23:16 → OBSVTOIN 23:16
PROVIDERS: ADMIT Internal Medicine; ATTEND Internal Medicine
PROC: 4A033B1 Measurement of Arterial Pressure, Peripheral, Percutaneous Approach (ICD-10-PCS; principal; 2016-09-10)
DX: J44.0 Chronic obstructive pulmonary disease with (acute) lower respiratory infection (principal); J96.21 Acute and chronic respiratory failure with hypoxia; J96.22 Acute and chronic respiratory failure with hypercapnia; J44.1 Chronic obstructive pulmonary disease with (acute) exacerbation; E88.01 Alpha-1-antitrypsin deficiency; G43.909 Migraine, unspecified, not intractable, without status migrainosus; G89.29 Other chronic pain; G47.33 Obstructive sleep apnea (adult) (pediatric); Z76.82 Awaiting organ transplant status; Z99.81 Dependence on supplemental oxygen; Z79.51 Long term (current) use of inhaled steroids